=== PATIENT | female | born 1975 ===

== ENCOUNTER 2020-08-12 08:16 | Outpatient (CLI) | payer OTHER ==
[~2020-08-12 08:16] MED LIST: METFORMIN PO; PRILOS PO; [UNRECOGNIZED DRUG - OTHER] PO
== END 2020-08-12 08:27 | disposition home or self-care (01) ==
LOC: LAB 08:16
PROVIDERS: ATTEND Student in an Organized Health Care Education/Training Program
DX: Z20.828 Contact with and (suspected) exposure to other viral communicable diseases (principal)

== ENCOUNTER → 2020-08-27 | Day surgery (SDC) | payer OTHER | END | disposition home or self-care (01) | LOC: ADM 08-01 09:45 → CIR.AMB 08-06 09:45 | PROVIDERS: ATTEND Student in an Organized Health Care Education/Training Program | DX: N93.8 Other specified abnormal uterine and vaginal bleeding (principal); Z20.822 Contact with and (suspected) exposure to COVID-19 ==